=== PATIENT | male | born 1950 | race African-American/Black ===

== ENCOUNTER → 2017-05-04 | Outpatient (CLI) | payer OTHER ==
[~2017-05-04] MED LIST: ALLOPURINOL 10100 M1 PO; ALPHAGAN P5 ML OPHTHALMIC; BACTRIM; COZAAR 25 MG TA25 M1 PO; DESYREL100 MG; DESYREL100 MG PO; DESYREL50 MG PO; DYAZIDE 37.5-21 EACH; DYAZIDE 37.5-21 EACH PO; FISH OIL 1,0001 EAC5 PO; GLUCOPHAGE XR500 MG PO; GLUCOPHAGE500 MG PO; LEXAPRO 10 MG T10 M2 PO; LISINOPRIL2.5 MG PO; METAMUCIL0.52 GM; METAMUCIL0.52 GM PO; MOBIC; MOBIC15 MG PO; MULTIVITAMINS; OMEGA-31000 MG; PAXIL20 MG; PAXIL20 MG PO; PERCOCET 5-3251 EACH PO; PERCOCET 7.5-31 EACH; TAMSULOSIN HCL0.4 MG PO; TIMOLOL GL0.5 %/5 M1 OPHTHALMIC; VITAMIN D400 UNI1 PO; VITAMINC500 PO; XALATAN2.5 ML OPHTHALMIC; ZANAFLEX4 MG PO; ZOCOR 20 MG TAB20 M1; ZOCOR 20 MG TAB20 M1 PO; ZOFRAN ODT4 MG PO; ZPAK PO; ZYPREXA5 MG; ZYPREXA5 MG PO; eye gtts IO
== END ==
LOC: RAD 11:42
DX: M19.041 Primary osteoarthritis, right hand (principal); R05 Cough

== ENCOUNTER → 2017-05-27 | Outpatient (CLI) | payer OTHER ==
[~2017-05-27] VITALS: Ht 167.6 cm; Wt 86.3 kg
--- NOTE | ~2017-05-27 | HPC ---
[facility] [place] [address] PAIN MANAGEMENT CONSULTATION Name: KATHRINE TREVIÑO Room #: REG [facility].#: [id number] Admission: 05/27/17 Attend Phys: Parth Mckeon MD Discharge: Date of : 52 Report #: [id number] THIS REPORT FOR: //name// CC: Parth Sierra MD DATE OF SERVICE: 05/27/2017 CHIEF COMPLAINT: Right neck and arm pain. HISTORY OF PRESENT ILLNESS: The patient is a 67-year-old gentleman who has been referred to the pain clinic for evaluation. The patient has been experiencing pain and discomfort since about January involving the right arm. He denies any trauma. He noticed that over a period of time, the pain has continued to increase and become more problematic. He does work in a very physical job. He has noticed that the pain started becoming problematic in January. He has noticed that he has some pain that radiates down his neck, shoulder and down into the anterior portion of his forearm. He has not had surgery. He has not had problems or pain like this in the past. Pain is not improved with exercise. Pain is made worse with rotating his neck from left to right, up and down, and from side to side. He feels that the pain does somewhat improve after the end of the day when he sits down and rests. Otherwise, he describes it as continuous, constant, aching, sharp. Rates it as 10/10. It is significantly impacting his ability to engage in activities of daily living. 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 Denies any bowel or bladder dysfunction as a result of this. ALLERGIES: PENICILLIN. MEDICATIONS: Metformin 500 mg 2 tablets b.i.d., simvastatin 20 mg daily, escitalopram 10 mg daily, trazodone 100 mg at bedtime, olanzapine 2.5 mg at bedtime, losartan 25 mg, triamterene hydrochlorothiazide 37.5/25 Meloxicam 15 mg, alprazolam 100 mg daily, tizanidine 4 mg q. 6 hours p.r.n., eye drops latanoprost 0.005% daily, brimonidine solution 0.2% b.i.d., and Timoptic 0.5% left eye. PAST MEDICAL HISTORY: Diabetes, hypertension, glaucoma, and kidney stones. PAST SURGICAL HISTORY: Ankle surgery November 2010, kidney stone surgery September 2012. 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 He is still working at this juncture. REVIEW OF SYSTEMS: Questionnaire in the chart indicates generally good health, recent weight change, glaucoma, kidney stones, depression, [id number] [address] PAIN MANAGEMENT CONSULTATION Name: KATHRINE TREVIÑO Room #: REG [facility]#: [id number] Admission: 05/27/17 Attend Phys: Parth Mckeon MD Discharge: Date of : 52 Report #: [id number] diabetes, otherwise the other 14-point review of systems is unremarkable. LABORATORY DATA: No laboratory imaging of the neck is available at the time of our interview. PAIN CLINIC ASSESSMENT: 1. No history of osteoarthritis or rheumatoid arthritis treatment. 2. Height 5 feet 6 inches, weight 190 pounds, BMI is 30. 3. Vital signs: Blood pressure 161/90, pulse 88, respiratory rate 16, room air saturation 98%. Pain intensity 10/10. 4. Risk for fall: The patient has not fallen in the last 3 months. He is not a fall risk. 5. The patient is not on a blood thinner. 6. History of hypertension: The patient is being treated for hypertension. 7. Opioid therapy greater than 6 weeks: The patient is not on opioid therapy greater than 6 weeks. 8. Risk assessment tool: The patient is not at high risk for opioid use. 9. Functional assessment tool, scored 25/70 in regards to general activity, mood, walking ability, work, relationships with others, sleep, and enjoyment of life. 10. The patient does not use recreational drugs. 11. The patient stopped smoking cigarettes in the past in 1979. Alcohol: The patient denies use of alcohol. PHYSICAL EXAMINATION: GENERAL: The patient is a well-developed, well-nourished black male. He appears his stated age. ORIENTATION: The patient is alert and oriented x 3. Affect appears appropriate. HEENT: Head atraumatic. Hearing is normal. Extraocular eye muscles intact. Buccal membranes moist. NECK: Without adenopathy or bruits. Palpation in the left trapezius and brachial outflow tract in the neck with soreness and tenderness. Soreness noted in the right rhomboid area. He notes some changes in sensation with numbness and tingling down the deltoid arm and into the forearm. Muscle ob nurse strength is 5/5 for the major muscles up in the hand. Deep tendon reflexes are +1 for the biceps and difficult to assess for triceps and brachioradialis in the upper extremities. The patient is able to lift his hand above his head. Notes some in discomfort on the right hand side. Left lateral bending caused some increased discomfort on the right shoulder. Right lateral bending does cause some increased pain with some pain radiating down into the forearm. Spurling's maneuver was positive on the right. Left and right lateral rotation caused some increased discomfort, particularly with right lateral rotation increasing pain and discomfort in the right arm. Lungs are clear to auscultation. HEART: Regular rate. ABDOMEN: Nontender. [facility] [address] [place] [address] PAIN MANAGEMENT CONSULTATION Name: KATHRINE TREVIÑO Room #: REG [facility]#: [id number] Admission: 05/27/17 Attend Phys: Parth Mckeon MD Discharge: Date of : 52 Report #: [id number] MUSCULOSKELETAL: Major muscle groups in the lower extremity is judged to be 5/5, difficult to assess the patellar reflexes and ankle reflexes secondary to the patient's inability to relax. Forward bending to 70 degrees was not problematic. Lumbar extension was not problematic. Left and right lateral rotation were not problematic. Musculoskeletal examination reveals normal alignment without significant scoliosis, kyphosis, or lordosis. The patient is able to stand, stand on his toes as well as his heels. IMPRESSION: 1. Cervical radiculopathy involving the right arm with pain radiating down into the right forearm with numbness, weakness, and tenderness in the C6/C5 distribution. 2. Diabetes. The patient states his blood sugars are generally under 120. 3. Kidney stones. 4. Gout. 5. Hypercholesterolemia. 6. Glaucoma. RECOMMENDATIONS: We discussed treatment options with the patient. Risks and benefits of an epidural steroid injection were discussed. Possible complications were reviewed. A model was used to indicate the area of probable pathology. The patient states that he understands. The treatment with a cervical epidural steroid injection was discussed. The risks and benefits were reviewed. They included but were not limited to infection, increased muscle soreness, headache, bleeding, nerve damage, and spinal headache. The patient would like to proceed. He will return to the pain clinic after he has been precerted by his insurance company. At that time, we would then proceed with an epidural steroid injection for the C6-C7 pain, which the patient is experiencing at this juncture. We would like to thank you for letting us participate in his care. We hope he continues to improve. <ELECTRONICALLY SIGNED> By: Parth Mckeon MD 06/17/17 1434 [id number] [id number] Parth Mckeon MD /[facility]
[2017-05-27 12:45] VITALS: BP 161/90
== END ==
LOC: PAIN 06:54
DX: M54.12 Radiculopathy, cervical region (principal); E11.9 Type 2 diabetes mellitus without complications; N20.0 Calculus of kidney; M10.9 Gout, unspecified; E78.00 Pure hypercholesterolemia, unspecified; H40.9 Unspecified glaucoma; I10 Essential (primary) hypertension; Z87.442 Personal history of urinary calculi; Z88.0 Allergy status to penicillin

== ENCOUNTER → 2017-06-12 | Outpatient (CLI) | payer OTHER ==
[~2017-06-12] VITALS: Ht 167.6 cm; Wt 88.9 kg
--- NOTE | ~2017-06-12 | HPC ---
[facility] [place] [address] [place] [address] PAIN MANAGEMENT CONSULTATION Name: KATHRINE TREVIÑO Deb Room #: REG [facility]#: [id number] Admission: 06/12/17 Attend Phys: Parth Mckeon MD Discharge: Date of : 52 Report #: [id number] THIS REPORT FOR: //name// CC: Parth Sierra MD DATE OF SERVICE: 06/12/2017 FOLLOWUP COMPLAINT: Here for the injection. FOLLOWUP HISTORY: The patient is a 67-year-old gentleman who has been followed in the pain clinic because of pain and discomfort involving his right arm. 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 He has noticed some worsening of his pain and discomfort since January of last year. He is experiencing pain, which radiates down into his arm and into his shoulder. This makes his job quite problematic. He was seen in the pain clinic and has returned today for an injection. He has had no new pain. The pain continues to be problematic and worse with movement of his right arm, movement of his neck and he would like to proceed with an epidural steroid injection. He rates his pain as a 10/10 in intensity today. ALLERGIES: PENICILLIN. MEDICATIONS: Metformin 500 mg 2 tablets p.o. b.i.d., simvastatin, statin 20 mg b.i.d., Escitalopram 10 mg daily, trazodone 100 mg at bedtime, Olanzapine 2.5 mg at bedtime, losartan 25 mg, triamcinolone/hydrochlorothiazide 37.5/25, meloxicam 15 mg p.o. daily, alprazolam 100 mg daily, tizanidine 4 mg q. 6 hours p.r.n., eye drops; latanoprost 0.005%, brimonidine solution 0.2% b.i.d. and Timoptic 0.5% in the left eye. PAIN CLINIC ASSESSMENT: 1. The patient is not being treated for osteoarthritis. 2. He is not being treated for rheumatoid arthritis. 3. Height 5 feet 6 inches, weight 196 pounds, BMI is 31. 4. Vital signs: Blood pressure 168/89, pulse 60, respiratory rate 16, room air saturation is 100%. 5. Pain intensity 01/13. 6. Fall risk. The patient has not fallen in the last 3 months. 7. The patient is not on a blood thinner. 8. Hypertension. The patient is being treated for hypertension. 9. Opioid therapy greater than 6 weeks. The patient is not on opioid therapy. 10. risk assessment tool. 11. Functional assessment tool. 12. Recreational drug use. The patient denies ever using recreational drugs. Tobacco: The patient denies use of tobacco. 13. Alcohol. The patient [place] [address] PAIN MANAGEMENT CONSULTATION Name: KATHRINE TREVIÑO Room #: REG CL [facility]#: [id number] Admission: 06/12/17 Attend Phys: Parth Mckeon MD Discharge: Date of : 52 Report #: [id number] PHYSICAL EXAMINATION: GENERAL: The patient is a well-developed, well-nourished black male. He appears stated age. Orientation: The patient is alert and oriented x 3. Affect appears appropriate. HEENT: Head is normocephalic, atraumatic. Extraocular eye muscles intact. Hearing is within normal limits. Buccal membranes moist. NECK: Without adenopathy or bruits. Palpation of the left trapezius and brachial outflow tract in the neck shows some sign of soreness and tenderness. Soreness is also noted in the right rhomboid area. Notes some changes in sensation with numbness and tingling down into the area of the deltoid and into the forearm. 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 Deep tendon reflexes are +1 for the biceps and difficult to assess for the triceps and brachioradialis in the upper extremities. The patient is able to lift his hand above his head. Also, notes that there is some discomfort in the right hand. Lower extremity, the patient is able to bend over without neurological complaints of the lower extremity. Heart rate is normal. ABDOMEN: Nontender. IMPRESSION: 1. Cervical radiculopathy involving the right arm with pain radiating down into the right forearm with numbness tingling, weakness and tenderness at the C6/C5 distribution. 2. Diabetes. The patient states his blood sugars are generally about 120. 3. Kidney stones. 4. Gout. 5. Hypercholesterolemia. 6. Glaucoma. RECOMMENDATIONS: We discussed treatment options with the patient. Risks and benefits of an epidural steroid injection of the cervical area were reviewed. Possible complications were reviewed. The risks which include but are not limited to infection, increased muscle soreness, headache, bleeding, nerve damage, improvement, no improvement, headaches were discussed. The patient elects to proceed. PROCEDURE NOTE: The patient was placed in the prone position. His back was sterilely prepped with Betadine solution. Fluoroscopy was used using an anterior and posterior approach. The trigger/target area was noted. A 0.25% bupivacaine was infiltrated. A 17-gauge Tuohy with loss of resistance technique was used to gain access to the epidural space. There was no CSF, heme or paresthesia. Total of 80 mg Depo-Medrol, 40 mg triamcinolone and 2 mL of 0.25% bupivacaine was injected. The patient tolerated the procedure well. There were no complications. He remained in the pain clinic for appropriate amount of [facility] [address] [place] [address] PAIN MANAGEMENT CONSULTATION Name: KATHRINE TREVIÑO Deb [id number] Admission: 06/12/17 Attend Phys: Parth Mckeon MD Discharge: Date of : 52 Report #: [id number] time. He will follow up in the future as needed. We would like to thank you for letting us participate in his care. We hope he continues to improve. <ELECTRONICALLY SIGNED> By: Parth Mckeon MD 07/03/17 0819 [id number] [id number] Parth Mckeon MD /nt
[2017-06-12 10:38] VITALS: BP 168/89
== END | disposition home or self-care (01) ==
LOC: PAIN 07:06
DX: M54.12 Radiculopathy, cervical region (principal); E11.9 Type 2 diabetes mellitus without complications; M10.9 Gout, unspecified; E78.00 Pure hypercholesterolemia, unspecified; H40.9 Unspecified glaucoma; I10 Essential (primary) hypertension; F11.20 Opioid dependence, uncomplicated; Z68.31 Body mass index [BMI] 31.0-31.9, adult; M06.9 Rheumatoid arthritis, unspecified; M19.90 Unspecified osteoarthritis, unspecified site; Z79.899 Other long term (current) drug therapy

== ENCOUNTER 2018-03-26 20:15 | Emergency (ER) | payer OTHER ==
[~2018-03-26] VITALS: Ht 165.1 cm; Wt 87.5 kg
[2018-03-26] MEDS ORDERED: TYLENOL325 MG PO (22:07)
[2018-03-26] MEDS ORDERED: NORFLEX100 MG PO (22:07)
[2018-03-26] MEDS ORDERED: ULTRAM 50MG TAB50 MG PO (22:07)
[2018-03-26 22:23] VITALS: BP 208/111
== END 2018-03-26 22:24 | disposition home or self-care (01) ==
LOC: ER 20:15
DX: S16.1XXA Strain of muscle, fascia and tendon at neck level, initial encounter (principal); R07.89 Other chest pain; I10 Essential (primary) hypertension; E11.9 Type 2 diabetes mellitus without complications; Z87.442 Personal history of urinary calculi; Z88.0 Allergy status to penicillin; V43.52XA Car driver injured in collision with other type car in traffic accident, initial encounter; Y93.I9 Activity, other involving external motion; Y92.89 Other specified places as the place of occurrence of the external cause; Y99.8 Other external cause status

== ENCOUNTER → 2020-07-26 | Outpatient (CLI) | payer OTHER ==
[~2020-07-26] MED LIST changes: +GUAIFEN-CODEINE10 ML PO; +NORFLEX100 MG PO; +NORVASC5 MG PO; +SINGULAIR 10 MG10 M1 PO; +TYLENOL325 MG PO; +ULTRAM 50MG TAB50 MG PO
== END ==
LOC: SJCVCIMAG 10:37 → SJCVC 10:37
PROVIDERS: ATTEND Internal Medicine
DX: I08.8 Other rheumatic multiple valve diseases (principal); R94.31 Abnormal electrocardiogram [ECG] [EKG]; I45.10 Unspecified right bundle-branch block; I49.1 Atrial premature depolarization; I11.9 Hypertensive heart disease without heart failure; E11.9 Type 2 diabetes mellitus without complications; M19.90 Unspecified osteoarthritis, unspecified site; E78.5 Hyperlipidemia, unspecified; Z88.0 Allergy status to penicillin; Z79.84 Long term (current) use of oral hypoglycemic drugs; Z79.899 Other long term (current) drug therapy; Z87.891 Personal history of nicotine dependence; Z82.49 Family history of ischemic heart disease and other diseases of the circulatory system

== ENCOUNTER → 2020-07-26 | Outpatient (CLI) | payer OTHER | LOC: CAT 11:01 | PROVIDERS: ATTEND Orthopaedic Surgery | DX: Z13.6 Encounter for screening for cardiovascular disorders (principal); E78.00 Pure hypercholesterolemia, unspecified; I25.10 Atherosclerotic heart disease of native coronary artery without angina pectoris ==

== ENCOUNTER → 2020-08-02 | Outpatient (CLI) | payer OTHER | LOC: SJCVC 10:19 | PROVIDERS: ATTEND Internal Medicine | DX: Z01.818 Encounter for other preprocedural examination (principal); I10 Essential (primary) hypertension; E78.5 Hyperlipidemia, unspecified; E11.9 Type 2 diabetes mellitus without complications; I45.10 Unspecified right bundle-branch block; M19.90 Unspecified osteoarthritis, unspecified site; Z88.0 Allergy status to penicillin; Z79.84 Long term (current) use of oral hypoglycemic drugs; Z79.899 Other long term (current) drug therapy; Z87.891 Personal history of nicotine dependence; Z82.49 Family history of ischemic heart disease and other diseases of the circulatory system ==

== ENCOUNTER → 2020-09-13 | Outpatient (CLI) | payer OTHER | LOC: SJCVC 08:46 | PROVIDERS: ATTEND Internal Medicine | DX: I10 Essential (primary) hypertension (principal); E11.9 Type 2 diabetes mellitus without complications; M19.90 Unspecified osteoarthritis, unspecified site; I45.10 Unspecified right bundle-branch block; E78.5 Hyperlipidemia, unspecified; Z98.890 Other specified postprocedural states; Z88.0 Allergy status to penicillin; Z79.84 Long term (current) use of oral hypoglycemic drugs; Z79.899 Other long term (current) drug therapy; Z87.891 Personal history of nicotine dependence; Z82.49 Family history of ischemic heart disease and other diseases of the circulatory system ==

== ENCOUNTER → 2020-09-27 | Outpatient (CLI) | payer OTHER | LOC: SJCVC 11:34 | PROVIDERS: ATTEND Internal Medicine | DX: I10 Essential (primary) hypertension (principal); E11.9 Type 2 diabetes mellitus without complications; E78.5 Hyperlipidemia, unspecified; M19.90 Unspecified osteoarthritis, unspecified site; I45.10 Unspecified right bundle-branch block; Z87.891 Personal history of nicotine dependence; Z79.84 Long term (current) use of oral hypoglycemic drugs; Z79.899 Other long term (current) drug therapy; Z88.0 Allergy status to penicillin ==

== ENCOUNTER → 2020-10-31 | Outpatient (CLI) | payer OTHER | LOC: SJCVCIMAG 07:59 | PROVIDERS: ATTEND Internal Medicine | DX: I10 Essential (primary) hypertension (principal); E11.9 Type 2 diabetes mellitus without complications; M19.90 Unspecified osteoarthritis, unspecified site; I45.10 Unspecified right bundle-branch block; E78.5 Hyperlipidemia, unspecified; Z88.0 Allergy status to penicillin; Z79.84 Long term (current) use of oral hypoglycemic drugs; Z79.899 Other long term (current) drug therapy; Z87.891 Personal history of nicotine dependence; Z82.49 Family history of ischemic heart disease and other diseases of the circulatory system ==

== ENCOUNTER → 2020-11-26 | Outpatient (CLI) | payer OTHER | LOC: SJCVC 08:57 | PROVIDERS: ATTEND Internal Medicine | DX: I10 Essential (primary) hypertension (principal); E11.9 Type 2 diabetes mellitus without complications; E78.5 Hyperlipidemia, unspecified; Z87.891 Personal history of nicotine dependence; Z79.899 Other long term (current) drug therapy; Z88.0 Allergy status to penicillin ==

== ENCOUNTER → 2020-12-28 | Outpatient (CLI) | payer OTHER | LOC: SJCVC 09:50 | PROVIDERS: ATTEND Internal Medicine | DX: I10 Essential (primary) hypertension (principal); Z13.220 Encounter for screening for lipoid disorders; E11.9 Type 2 diabetes mellitus without complications; E78.5 Hyperlipidemia, unspecified; Z87.891 Personal history of nicotine dependence; Z79.899 Other long term (current) drug therapy; Z79.84 Long term (current) use of oral hypoglycemic drugs; Z88.0 Allergy status to penicillin ==

== ENCOUNTER → 2021-02-01 | Outpatient (CLI) | payer OTHER | LOC: SJCVC 09:51 | PROVIDERS: ATTEND Internal Medicine | DX: I10 Essential (primary) hypertension (principal); E11.9 Type 2 diabetes mellitus without complications; E78.5 Hyperlipidemia, unspecified; Z87.891 Personal history of nicotine dependence; Z79.899 Other long term (current) drug therapy; Z88.0 Allergy status to penicillin ==

== ENCOUNTER → 2021-03-12 | Outpatient (CLI) | payer OTHER | LOC: SJCVC 09:21 | PROVIDERS: ATTEND Internal Medicine | DX: I10 Essential (primary) hypertension (principal); E11.9 Type 2 diabetes mellitus without complications; E78.5 Hyperlipidemia, unspecified; Z87.891 Personal history of nicotine dependence; Z79.899 Other long term (current) drug therapy; Z88.0 Allergy status to penicillin ==